=== PATIENT | female | born 1960 | race Caucasian/White ===

== ENCOUNTER 2016-12-10 14:08 | Emergency (ER) | payer BC ==
[2016-12-10 14:20] VITALS: O2SAT 96
[2016-12-10] MEDS ORDERED: Rocephin 1000 MG INJ IM ONE (14:30)
[2016-12-10] MEDS ORDERED: XYLOCAINE 1% HCL 20 ML MDV ONE (14:36)
[2016-12-10] MEDS ORDERED: Rocephin 1000 MG INJ ONE (14:36)
--- NOTE | 2016-12-10 14:37 | ERPHSYRPT ---
- History of Present Illness Time Seen by Provider: 12/10/16 14:32 Source: patient Exam Limitations: no limitations Patient Subjective Stated Complaint: pt states she seen brittani velez on 12/07/16 and placed on keflex. and prednisone for a bug bite to the face. pt concerned because now her eye is swelling. Triage Nursing Assessment: pt pink, warm, dry. pt afebrile. area of redness noted to left forehead. swelling to left eye noted, no drainage present. Physician History: 56-year-old female came to the emergency room with complaining of swelling of both the left eyes on left forehead started last Sunday. She went to see the primary care physician on Sunday and was started on cephalexin and prednisone 10 mg daily and see was given steroid shot. Her swelling started getting worse so she came to the emergency room. She denies any fever, chills, nausea, vomiting, or visual disturbance. Timing/Duration: week(s) Associated Symptoms: denies symptoms Allergies/Adverse Reactions: pseudoephedrine HCl [From Seldane-D] Allergy (Verified 12/10/16 14:20) Congested Nose terfenadine [From Seldane-D] Allergy (Verified 12/10/16 14:20) Congested Nose Home Medications: Alprazolam 0.25 mg [xanAX 0.25 MG] 0.25 mg PO BID 03/21/13 [History] Fluoxetine HCl 20 mg [Prozac 20 MG] 20 mg PO DAILY 03/21/13 [History] Ibuprofen 800 mg PO Q6HPRN 03/21/13 [History] Ropinirole HCl [Requip] 1.5 mg PO HS 03/21/13 [History] Cyclobenzaprine HCl 10 mg [Cyclobenzaprine 10 MG] 10 mg PO DAILY 12/10/16 [History] Estradiol [Estrace] 0.5 mg PO DAILY 12/10/16 [History] Levothyroxine Sodium 175 mcg PO DAILY 12/10/16 [History] Trazodone HCl 50 mg [Desyrel 50 mg] 50 mg PO DAILY 12/10/16 [History] Hx Tetanus, Diphtheria Vaccination/Date Given: Yes (up to date) Hx Influenza Vaccination/Date Given: No Hx Pneumococcal Vaccination/Date Given: No Immunizations Up to Date: Yes - Review of Systems Constitutional: No Fever, No Chills Eyes: Other (swelling above left eye on forehead rastafari area) Ears, Nose, & Throat: No Symptoms Respiratory: No Cough, No Dyspnea Cardiac: No Chest Pain, No Edema, No Syncope Abdominal/Gastrointestinal: No Abdominal Pain, No Nausea, No Vomiting, No Diarrhea Genitourinary Symptoms: No Dysuria Musculoskeletal: No Back Pain, No Neck Pain Skin: No Rash Neurological: No Dizziness, No Focal Weakness, No Sensory Changes Psychological: No Symptoms Endocrine: No Symptoms All Other Systems: Reviewed and Negative - Past Medical History Pertinent Past Medical History: Yes Neurological History: Migraines ENT History: No Pertinent History Cardiac History: No Pertinent History Respiratory History: Asthma Endocrine Medical History: Diabetes Type II Musculoskeletal History: No Pertinent History GI Medical History: GERD History: No Pertinent History Psycho-Social History: Depression, Panic Disorder Female Reproductive Disorders: Other Other Medical History: PRECANCER cervix times 3. FRACTURE TO L FOOT YEARS AGO - Past Surgical History Past Surgical History: Yes Cardiac: No Pertinent History Gastrointestinal: No Pertinent History, Cholecystectomy Musculoskeletal: No Pertinent History Female Surgical History: Hysterectomy, Section Other Surgical History: ABLASION 2014. thyroidectomy - Social History Smoking Status: Current every day smoker How long have you smoked: 30 Exposure to second hand smoke: Yes Drug Use: none Patient Lives Alone: No - Female History Hx Last Menstrual Period: hyster - Nursing Vital Signs Nursing Vital Signs: Initial Vital Signs Temperature 98.8 F 12/10/16 14:14 Pulse Rate 98 H 12/10/16 14:14 Respiratory Rate 18 12/10/16 14:14 Blood Pressure 135/91 12/10/16 14:14 O2 Sat by Pulse Oximetry 96 12/10/16 14:14 Pain Scale Pain Intensity 5 - Physical Exam General Appearance: no apparent distress Eye Exam: PERRL/EOMI, other (redness over left forehead above upper left eye) Neck Exam: normal inspection Respiratory Exam: normal breath sounds Cardiovascular Exam: regular rate/rhythm SpO2: 96 Oxygen Delivery: Room Air - Course Nursing assessment & vital signs reviewed: Yes Ordered Tests: Medication Summary Discontinued Medications Generic Name Dose Route Start Last Admin Trade Name Freq PRN Reason Stop Dose Admin Ceftriaxone Sodium 1,000 mg 12/10/16 14:30 Rocephin 1000 Mg Inj IM 12/10/16 14:31 STAT ONE - Progress Progress: unchanged Counseled pt/family regarding: diagnosis, need for follow-up - Departure Time of Disposition: 14:35 Departure Disposition: Home Clinical Impression: Abscess or cellulitis of forehead Condition: Stable Critical Care Time: No Referrals: CHELSY VELEZ [Primary Care Provider] - Instructions: Orbital Cellulitis, Cellulitis -- Adult Additional Instructions: Please follow the instructions given to you. Please take your medication as prescribed if given. If symptoms recur or get worse, come back to the emergency room if you cannot reach your primary care physician, or call your primary care physician for an appointment. Again if your symptoms get worse, come back to the emergency room. Thanks for visiting emergency room, and let us take care of you. Prescriptions: Mupirocin [Bactroban OINTMENT] 1 gm TP BID #60 tube Levofloxacin [Levaquin 500 MG Tablet] 500 mg PO QAM #7 tablet
[2016-12-10 15:06] VITALS: BP 124/83; PULSE 91
== END 2016-12-10 15:04 | disposition home or self-care (01) ==
LOC: ED 14:08
DX: L02.01 Cutaneous abscess of face (principal); L03.211 Cellulitis of face; W57.XXXA Bitten or stung by nonvenomous insect and other nonvenomous arthropods, initial encounter
CPT/HCPCS: 96372; 99284; J0696

== ENCOUNTER 2017-02-18 14:42 | Emergency (ER) | payer BC ==
[2017-02-18] MEDS ORDERED: DUONEB 0.5-3 MG/3 ml Neb IH ONE ×2 (14:58→15:00)
[2017-02-18] MEDS ORDERED: solu-MEDROL 125 MG IV ONE (15:00)
--- NOTE | 2017-02-18 15:00 | ERPHSYRPT ---
- History of Present Illness Time Seen by Provider: 02/18/17 14:50 Source: patient Exam Limitations: no limitations Patient Subjective Stated Complaint: patient has cough and is short of breath, states she had cold for over week Triage Nursing Assessment: pt alert and oriented x3, ambulates by self gait is steady, dry cough, lung sounds diminished with some wheezing on expiration, pulses equal bilateral radius, no nasal drainage noted. skin warm dry and intact, pupils perrla2. Physician History: 56 y/o female with history of exercised induced asthma and DM comes to the ER with a 1 week history of shortness of breath, congestion, dry cough and wheezing. Pt has been using an inhaler with minimal relief. Pt has also been using sudafed with no relief. Pt denies any fever, chills, weakness, chest pain , dizziness or palpitations. Timing/Duration: week(s) Activities at Onset: none Severity of Dyspnea-Max: moderate Severity of Dyspnea-Current: moderate Possible Cause: no prior episodes Associated Symptoms: cough, wheezing International travel in last 2 weeks: No Allergies/Adverse Reactions: pseudoephedrine HCl [From Seldane-D] Allergy (Verified 12/10/16 14:20) Congested Nose terfenadine [From Seldane-D] Allergy (Verified 12/10/16 14:20) Congested Nose Home Medications: Alprazolam 0.25 mg [xanAX 0.25 MG] 0.25 mg PO BID 03/21/13 [History] Fluoxetine HCl 20 mg [Prozac 20 MG] 20 mg PO DAILY 03/21/13 [History] Ibuprofen 800 mg PO Q6HPRN 03/21/13 [History] Ropinirole HCl [Requip] 1.5 mg PO HS 03/21/13 [History] Cyclobenzaprine HCl 10 mg [Cyclobenzaprine 10 MG] 10 mg PO DAILY 12/10/16 [History] Estradiol [Estrace] 0.5 mg PO DAILY 12/10/16 [History] Levothyroxine Sodium 175 mcg PO DAILY 12/10/16 [History] Trazodone HCl 50 mg [Desyrel 50 mg] 50 mg PO DAILY 12/10/16 [History] Hx Tetanus, Diphtheria Vaccination/Date Given: Yes Hx Influenza Vaccination/Date Given: Yes Hx Pneumococcal Vaccination/Date Given: No Immunizations Up to Date: Yes - Review of Systems Constitutional: No Fever, No Chills Eyes: No Symptoms Ears, Nose, & Throat: No Symptoms Respiratory: Cough, Dyspnea, Dyspnea on Exertion (LEVIN), Wheezing Cardiac: No Chest Pain, No Edema, No Syncope Abdominal/Gastrointestinal: No Abdominal Pain, No Nausea, No Vomiting, No Diarrhea Genitourinary Symptoms: No Dysuria Musculoskeletal: No Back Pain, No Neck Pain Skin: No Rash Neurological: No Dizziness, No Focal Weakness, No Sensory Changes Psychological: No Symptoms Endocrine: No Symptoms All Other Systems: Reviewed and Negative - Past Medical History Pertinent Past Medical History: Yes Neurological History: Migraines ENT History: No Pertinent History Cardiac History: No Pertinent History Respiratory History: Asthma Endocrine Medical History: Diabetes Type II Musculoskeletal History: No Pertinent History GI Medical History: GERD History: No Pertinent History Psycho-Social History: Depression, Panic Disorder Female Reproductive Disorders: Other Other Medical History: PRECANCER cervix times 3. FRACTURE TO L FOOT YEARS AGO - Past Surgical History Past Surgical History: Yes Cardiac: No Pertinent History Gastrointestinal: No Pertinent History, Cholecystectomy Musculoskeletal: No Pertinent History Female Surgical History: Hysterectomy, Section Other Surgical History: ABLASION 2014. thyroidectomy - Social History Smoking Status: Current every day smoker How long have you smoked: 30 Exposure to second hand smoke: Yes Drug Use: none Patient Lives Alone: No - Nursing Vital Signs Nursing Vital Signs: Initial Vital Signs Temperature 98.1 F 02/18/17 14:43 Pulse Rate 77 02/18/17 14:43 Respiratory Rate 20 02/18/17 14:43 Blood Pressure 132/80 02/18/17 14:43 O2 Sat by Pulse Oximetry 96 02/18/17 14:43 Pain Scale Pain Intensity 0 - Physical Exam General Appearance: no apparent distress, alert Eye Exam: PERRL/EOMI Neck Exam: normal inspection, supple Respiratory Exam: wheezing, No chest tenderness, No accessory muscle use, No crackles/rales, No rhonchi Cardiovascular/Chest Exam: normal heart sounds, regular rate/rhythm Abdominal/Gastrointestinal Exam: soft, No tenderness, No distention, No mass Extremity Exam: non-tender, normal range of motion, normal inspection, no calf tenderness, no pedal edema Neurologic Exam: alert, oriented x 3, cooperative, senior financial II-XII nml as tested, sensation nml, No motor deficits Skin Exam: normal color, warm, No dry SpO2 Interpretation: normal SpO2: 99 Oxygen Delivery: Room Air - Course EKG Interpreted by Me: RATE (HR 70), NORMAL AXIS, NORMAL INTERVALS, NORMAL QRS, NORMAL ST-T Ordered Tests: Active Orders 24 hr Category Date Time Status Boat Loader STAT Care 02/18/17 15:00 Active EKG-ER Only STAT Care 02/18/17 15:00 Active IV Insertion STAT Care 02/18/17 15:00 Active CHEST 2 VIEWS (PA AND LAT) Stat Exams 02/18/17 15:00 Completed CBC W DIFF Stat Lab 02/18/17 15:15 Completed CMP Stat Lab 02/18/17 15:15 Completed MAGNESIUM Stat Lab 02/18/17 15:15 Completed TROPONIN Q3H Lab 02/18/17 15:15 Completed TROPONIN Q3H Lab 02/19/17 00:00 Ordered TROPONIN Q3H Lab 02/19/17 03:00 Ordered Respiratory Nebulizer STAT RT 02/18/17 15:01 Completed Medication Summary Discontinued Medications Generic Name Dose Route Start Last Admin Trade Name Freq PRN Reason Stop Dose Admin Albuterol/Ipratropium Confirm 02/18/17 14:58 Duoneb 0.5-3 Mg/3 Ml Neb Administered 02/18/17 14:59 Dose 3 ml IH .STK-MED ONE Albuterol/Ipratropium 3 ml 02/18/17 15:00 02/18/17 15:03 Duoneb 0.5-3 Mg/3 Ml Neb IH 02/18/17 15:01 3 ml STAT ONE Administration Azithromycin 500 mg 02/18/17 15:46 02/18/17 15:57 Zithromax 250 Mg Tablet PO 02/18/17 15:47 500 mg STAT ONE Administration Azithromycin Confirm 02/18/17 15:55 Zithromax 250 Mg Tablet Administered 02/18/17 15:56 Dose 500 mg .ROUTE .STK-MED ONE Methylprednisolone Sodium Succinate 125 mg 02/18/17 15:00 02/18/17 15:20 Solu-Medrol 125 Mg IV 02/18/17 15:01 125 mg STAT ONE Administration Methylprednisolone Sodium Succinate Confirm 02/18/17 15:14 Solu-Medrol 125 Mg Administered 02/18/17 15:15 Dose 125 mg .ROUTE .STK-MED ONE Lab/Rad Data: Laboratory Result Diagrams 02/18/17 15:15 02/18/17 15:15 Laboratory Results 02/18/17 02/18/17 02/18/17 Range/Units 15:15 15:15 15:15 WBC 6.6 (4.0-10.5) K/mm3 RBC 5.08 (4.1-5.4) M/mm3 Hgb 14.0 (12.0-16.0) gm/dl Hct 43.8 (35-47) % MCV 86.2 (78-100) fl MCH 27.6 (26-32) pg MCHC 32.0 (32-36) g/dl RDW 13.9 (11.5-14.0) % Plt Count 220 (150-450) K/mm3 MPV 12.1 H (6-9.5) fl Gran % 57.1 (36.0-66.0) % Lymphocytes % 33.7 (24.0-44.0) % Monocytes % 6.8 (0.0-12.0) % Eosinophils % 2.1 (0.00-5.0) % Basophils % 0.3 (0.0-0.4) % Basophils # 0.02 (0-0.4) Sodium 136 (136-145) mEq/L Potassium 4.0 (3.5-5.1) mEq/L Chloride 101 (98-107) mEq/L Carbon Dioxide 22.4 (21-32) mEq/L Anion Gap 16.3 H (5-15) MEQ/L BUN 12 (9-20) mg/dL Creatinine 1.21 (0.55-1.30) mg/dl Estimated GFR 49 ML/MIN Glucose 142 H (70-110) MG/DL Calcium 9.0 (8.5-10.1) mg/dL Magnesium 1.8 (1.8-2.4) mg/dL Total Bilirubin 0.60 (0.2-1.0) mg/dL AST 41 H (15-37) U/L ALT 45 (12-78) U/L Alkaline Phosphatase 83 (46-116) U/L Troponin I < 0.017 (0.000-0.056) ng/ml Serum Total Protein 8.1 (6.4-8.2) gm/dL Albumin 3.4 (3.4-5.0) g/dL - Progress Progress: improved Air Movement: fair Progress Note: 02/18/17 15:50 Pt feels better after receiving duoneb and solumedrol. The CXR does not show any acute findings. The rest of the labs are within normal limits. Pt will be started on azithromycin for bronchitis - Departure Time of Disposition: 15:52 Departure Disposition: Home Clinical Impression: Bronchitis Condition: Stable Critical Care Time: No Referrals: CHELSY CHANDLER [Primary Care Provider] - Instructions: Bronchitis Additional Instructions: Follow up with your primary care doctor for worsening shortness of breath, cough , congestion and wheezing. Prescriptions: Albuterol Sulfate [Ventolin Hfa] 18 gm IH QID PRN #1 [id number] PRN Reason: Shortness Of Breath/Wheezing Azithromycin 250 mg [Zithromax 250 MG TABLET] 250 mg PO DAILY #4 tablet Prednisone 20 mg [Deltasone 20 mg] 20 mg PO DAILY #5 tablet
[2017-02-18] MEDS ORDERED: solu-MEDROL 125 MG ONE (15:14)
[2017-02-18 15:19] LABS: BASOPHIL % 0.3 % (0.0-0.4); Eosinophil % 2.1 % (0.00-5.0); Granulocytes % 57.1 % (36.0-66.0); Lymphocytes % 33.7 % (24.0-44.0); Mean Cell Volume 86.2 fl (78-100); Mean Corpuscular Hemoglobin 27.6 pg (26-32); Mean Platelet Volume 12.1 fl (6-9.5); Monocytes % 6.8 % (0.0-12.0); Platelet Count 220 K/mm3 (150-450); Red Blood Count 5.08 M/mm3 (4.1-5.4); Red Cell Distribution Width 13.9 % (11.5-14.0); White Blood Count 6.6 K/mm3 (4.0-10.5)
[2017-02-18 15:42] LABS: ALBUMIN 3.4 g/dL (3.4-5.0); ANION GAP 16.3 MEQ/L (5-15); BILIRUBIN,TOTAL 0.6 mg/dL (0.2-1.0); Carbon Dioxide 22.4 mEq/L (21-32); MAGNESIUM 1.8 mg/dL (1.8-2.4); Total Protein 8.1 gm/dL (6.4-8.2)
[2017-02-18] MEDS ORDERED: Zithromax 250 MG TABLET PO ONE (15:46)
[2017-02-18 15:55] VITALS: O2SAT 99
[2017-02-18] MEDS ORDERED: Zithromax 250 MG TABLET ONE (15:55)
[2017-02-18 16:09] VITALS: BP 124/74; PULSE 82
--- NOTE | 2017-02-18 20:38 | XRAY ---
Indication: Short of breath, cough, and wheezing. Comparison: February 20, 2014. PA/lateral chest remains clear. Heart is not enlarged. Vascularity normal. Bony thorax intact with minimal spinal degenerative changes. Impression: Nonacute chest.
== END 2017-02-18 16:19 | disposition home or self-care (01) ==
LOC: ED 14:42
DX: J40 Bronchitis, not specified as acute or chronic (principal)
CPT/HCPCS: 36000; 36415; 71020; 80053; 83735; 84484; 85025; 93005; 93041; 94640; 96374; 99284; J2930; A9270-GY

== ENCOUNTER 2021-05-13 10:01 | Emergency (ER) | payer BC ==
[2021-05-13] MEDS ORDERED: NEOSYNEPHRINE 0.5% NASAL SPRAY/DROPS ONE (10:31)
--- NOTE | 2021-05-13 10:31 | ERPHSYRPT ---
- History of Present Illness Time Seen by Provider: 05/13/21 10:20 Source: patient Exam Limitations: no limitations Patient Subjective Stated Complaint: pt here for nose bleed off and on for a couple days, started today at 0936. she tested positive for covid a week ago, an d states her only symptom is a stuffy nose Triage Nursing Assessment: pt alert, walked in, resp easy, skin w/d/p,holding pressure to nose, has small amt of bleeding from both nostrils Physician History: This is a 60-year-old white female who has had 2-day history of intermittent nosebleeds. In the distant past patient had spontaneous nosebleed and it required placement of nasal tampons. She is not had any bleeding for several decades. However, for the last 2 days there is been spontaneous onset of bilateral nostril epistaxis. Patient has no known bleeding or clotting disorders. Patient has no known liver disease. Patient is not on any anticoagulation therapy but occasionally does use ibuprofen. Patient denies nasal trauma. Patient has a history of migraine headaches, asthma, diabetes, gastroesophageal reflux disease, panic disorder and depression. Timing/Duration: gradual onset, intermittent Severity: mild ENT Location: nose Prearrival Treatment: squeezing nostrils Associated Symptoms: epistaxis (Bilateral nostrils) Allergies/Adverse Reactions: pseudoephedrine HCl [From Seldane-D] Allergy (Verified 12/10/16 14:20) Congested Nose terfenadine [From Seldane-D] Allergy (Verified 12/10/16 14:20) Congested Nose Home Medications: ALPRAZolam 0.25 MG [xanAX 0.25 MG] 0.25 mg PO BID 03/21/13 [History] Fluoxetine HCl 20 mg [Prozac 20 MG] 20 mg PO DAILY 03/21/13 [History] Ibuprofen 800 mg PO Q6HPRN 03/21/13 [History] Ropinirole HCl [Requip] 1.5 mg PO HS 03/21/13 [History] Cyclobenzaprine HCl 10 mg [Cyclobenzaprine 10 MG] 10 mg PO DAILY 12/10/16 [History] Estradiol [Estrace] 0.5 mg PO DAILY 12/10/16 [History] Levothyroxine Sodium 175 mcg PO DAILY 12/10/16 [History] Trazodone HCl 50 mg [Desyrel 50 mg] 50 mg PO DAILY 12/10/16 [History] Hx Tetanus, Diphtheria Vaccination/Date Given: Yes Hx Influenza Vaccination/Date Given: Yes Hx Pneumococcal Vaccination/Date Given: No Immunizations Up to Date: Yes Travel Risk - International Travel Have you traveled outside of the country in past 3 weeks: No - Coronavirus Screening Are you exhibiting any of the following symptoms?: Yes Symptoms: Cough: New Onset - Vaccine Status Have you recieved a Covid-19 vaccination: Yes Veterinary Meat Inspector: Moderna - Vaccination Dates Date of 2cond Vaccination (if applicable): ? - Review of Systems Constitutional: No Symptoms Eyes: No Symptoms Ears, Nose, & Throat: Epistaxis Respiratory: No Symptoms Cardiac: No Symptoms Abdominal/Gastrointestinal: No Symptoms Genitourinary Symptoms: No Symptoms Musculoskeletal: No Symptoms Skin: No Symptoms Neurological: No Symptoms Psychological: No Symptoms Endocrine: No Symptoms Hematologic/Lymphatic: No Symptoms Immunological/Allergic: No Symptoms All Other Systems: Reviewed and Negative - Past Medical History Pertinent Past Medical History: Yes Neurological History: Migraines ENT History: No Pertinent History Cardiac History: No Pertinent History Respiratory History: Asthma Endocrine Medical History: Diabetes Type II Musculoskeletal History: No Pertinent History GI Medical History: GERD History: No Pertinent History Psycho-Social History: Depression, Panic Disorder Female Reproductive Disorders: Other Other Medical History: PRECANCER cervix times 3. FRACTURE TO L FOOT YEARS AGO - Past Surgical History Past Surgical History: Yes Cardiac: No Pertinent History Gastrointestinal: No Pertinent History, Cholecystectomy Musculoskeletal: No Pertinent History Female Surgical History: Hysterectomy, Section Other Surgical History: ABLASION 2014. thyroidectomy - Social History Smoking Status: Current every day smoker How long have you smoked: 30 Exposure to second hand smoke: Yes Drug Use: none Patient Lives Alone: No - Female History Hx Last Menstrual Period: hyster Hx Now: No - Nursing Vital Signs Nursing Vital Signs: Initial Vital Signs Temperature 97.2 F 05/13/21 10:19 Pulse Rate 89 05/13/21 10:19 Respiratory Rate 18 05/13/21 10:19 Blood Pressure 140/96 05/13/21 10:19 O2 Sat by Pulse Oximetry 95 05/13/21 10:19 Pain Scale Pain Intensity 0 - Physical Exam General Appearance: no apparent distress, alert, anxiety, obese Eye Exam: bilateral eye: normal inspection, PERRL, EOMI Ear Exam: bilateral ear: auricle normal, canal normal, TM normal Nasal Exam: dried blood Throat Exam: normal, pharynx normal Neck Exam: normal inspection, non-tender, supple, full range of motion, trachea midline Cardiovascular/Respiratory Exam: chest non-tender, no respiratory distress Abdominal Exam: non-tender Neurologic Exam: alert, oriented x 3, cooperative, lens inspector II-XII nml as tested, normal mood/affect, nml cerebellar function, nml station & gait, sensation nml Skin Exam: normal color, warm, dry SpO2 Interpretation: normal SpO2: 95 O2 Delivery: Room Air Procedures - Additional Procedures Progress: Placement of bilateral 7.5 anterior/posterior Rhino Rocket. Medical decision making: This patient had spontaneous nosebleed that has been intermittent for 2 days. Patient is adamant that she wants both nostrils packed. She does not want to return to the emergency room for another emergency room charge and does not want to delay treatment. We contacted [facility] ENT office. They are going to contact the patient and arrange an outpatient appointment. - Course Nursing assessment & vital signs reviewed: Yes Ordered Tests: Medication Summary Discontinued Medications Generic Name Dose Route Start Last Admin Trade Name Iván PRN Reason Stop Dose Admin Phenylephrine HCl Confirm 05/13/21 10:31 Neosynephrine 0.5% Nasal Sunray/Drops Administered 05/13/21 10:32 Dose 15 ml .ROUTE .STK-MED ONE Phenylephrine HCl 15 ml 05/13/21 10:35 05/13/21 10:37 Neosynephrine 0.5% Nasal Sunray/Drops NS 05/13/21 10:36 15 ml STAT ONE Administration - Progress Progress: improved Counseled pt/family regarding: diagnosis, need for follow-up - Departure Departure Disposition: Home Clinical Impression: Epistaxis Condition: Stable Critical Care Time: No Referrals: CHELSY CHANDLER NP [Primary Care Provider] - Follow up/PCP as directed Additional Instructions: Keep the Rhino Rocket nasal tampons in place. If there is bleeding around these tampons, follow-up at [facility] or [facility] for definitive care by ENT specialist. The [facility] ENT office is going to contact you with the appointment date and time. Take your antibiotics as prescribed. Prescriptions: Cephalexin Mh 500 mg [Keflex 500 mg] 500 mg PO TID #21 cap
[2021-05-13] MEDS ORDERED: NEOSYNEPHRINE 0.5% NASAL SPRAY/DROPS NS ONE (10:35)
[2021-05-13 11:14] VITALS: BP 107/71; PULSE 79
[2021-05-13 11:15] VITALS: O2SAT 95
== END 2021-05-13 11:31 | disposition home or self-care (01) ==
LOC: ED 10:01
DX: R04.0 Epistaxis (principal); E11.9 Type 2 diabetes mellitus without complications; K21.9 Gastro-esophageal reflux disease without esophagitis; F32.A Depression, unspecified; F41.0 Panic disorder [episodic paroxysmal anxiety]; Z72.0 Tobacco use; Z79.899 Other long term (current) drug therapy
CPT/HCPCS: 30905; 99283; A9270-GY